=== PATIENT | female | born 1995 | race Caucasian/White ===

== ENCOUNTER 2017-01-15 08:00 | Outpatient (CLI) | payer OTHER ==
[2017-01-15 15:16] LABS: BASOPHILS % (AUTO) 0.6 %; EOSINOPHILS # (AUTO) 0.1 10^3/uL (0.0-0.7); EOSINOPHILS % (AUTO) 1.7 %; HCT - HEMATOCRIT 39.7 % (37.0-47.0); HGB - HEMOGLOBIN 13.3 g/dL (12.0-16.0); LYMPHOCYTES # (AUTO) 2.7 10^3/uL (1.5-3.5); LYMPHOCYTES % (AUTO) 36.8 %; MEAN CORPUSCULAR HEMOGLOBIN 28.8 pg (27.0-31.0); MEAN CORPUSCULAR HGB CONC 33.4 g/dL (32.0-36.0); MEAN CORPUSCULAR VOLUME 86.2 fL (81.0-99.0); MONOCYTES # (AUTO) 0.2 10^3/uL (0.0-1.0); MONOCYTES % (AUTO) 2.6 %; NEUTROPHILS # (AUTO) 4.2 10^3/uL (1.5-6.6); NEUTROPHILS % (AUTO) 58.3 %; NUCLEATED RED BLOOD CELLS AUTO 0.1 /100WBC; RED BLOOD COUNT 4.61 10^6/uL (4.20-5.40); RED CELL DISTRIBUTION WIDTH 13.1 % (12.0-15.0); UNCORRECTED WHITE BLOOD COUNT 7.2 x10^3/uL; WHITE BLOOD COUNT 7.2 x10^3/uL (4.8-10.8)
[2017-01-15 16:08] LABS: BILIRUBIN,TOTAL 0.5 mg/dL (0.2-1.0); BUN - BLOOD UREA NITROGEN 14 mg/dL (6-20); CALCIUM 8.8 mg/dL (8.5-10.3); CARBON DIOXIDE - CO2 25 mmol/L (21-32); CHLORIDE 100 mmol/L (101-111); CHOL/HDL RATIO 2.7 (<4.4); CHOLESTEROL 219 mg/dL; CREATININE 0.5 mg/dL (0.4-1.0); GFR - MDRD 153 (>89); GLUCOSE 358 mg/dL (70-100); HDL CHOLESTEROL 81 mg/dL; LDL/HDL RATIO 1.3 (<4.4); POTASSIUM 4.2 mmol/L (3.5-5.0); SODIUM 135 mmol/L (135-145); TOTAL PROTEIN 7.1 g/dL (6.7-8.2); TRIGLYCERIDES 152 mg/dL; VLDL CHOLESTEROL 30 mg/dL
[2017-01-15 17:01] LABS: HEMOGLOBIN A1C 1.3 g/dL
== END 2017-01-15 23:59 | disposition home or self-care (01) ==
LOC: LAB.R 08:00
PROVIDERS: ATTEND Nurse Practitioner Primary Care
DX: E10.9 Type 1 diabetes mellitus without complications (principal); Z79.899 Other long term (current) drug therapy
CPT/HCPCS: 80053; 80061; 82043; 82570; 83036; 84443; 85025

== ENCOUNTER 2017-03-29 18:26 | Outpatient (CLI) | payer OTHER ==
[2017-03-31 21:12] LABS: TEST RESULT REPORT (())
[2017-04-01 18:41] LABS: GLIADIN (DEAMIDATED) AB IGA 10 U (<20); GLIADIN (DEAMIDATED) AB IGG 18 U (<20); IMMUNOGLOBULIN A 127 mg/dL (81-463); TISSUE TRANSGLUTAMINASE IGA 8 U/mL (()); TISSUE TRANSGLUTAMINASE IGG 3 U/mL (())
== END 2017-03-29 18:27 | disposition home or self-care (01) ==
LOC: LAB 18:26
PROVIDERS: ATTEND Internal Medicine
DX: R19.7 Diarrhea, unspecified (principal); R10.13 Epigastric pain
CPT/HCPCS: 36415; 81599; 82784; 83516; 86256; 87045; 87046; 87329; 87493

== ENCOUNTER 2018-01-08 09:26 | Outpatient (CLI) | payer OTHER ==
[2018-01-08 10:07] LABS: HB2 TOTAL 13.2 g/dL; HEMOGLOBIN A1C % 9.1 % (4.6-6.2)
== END 2018-01-08 09:27 | disposition home or self-care (01) ==
LOC: LAB 09:26
PROVIDERS: ATTEND Nurse Practitioner Primary Care
DX: E10.40 Type 1 diabetes mellitus with diabetic neuropathy, unspecified (principal)
CPT/HCPCS: 36415; 82947; 83036

== ENCOUNTER 2018-06-03 11:32 | Outpatient (CLI) | payer OTHER ==
--- NOTE | 2018-06-03 11:55 | XRAY Report ---
Procedure Date: 06/03/2018 Accession Number: [id number] / [id number] Procedure: XRN - Foot 3 View LT CPT Code: FULL RESULT: EXAM: Foot 3 View LT DATE: 06/03/2018 11:47 AM CLINICAL HISTORY: TYPE 1 DIABETES MELLITUS WITHOUT COMPLICATIONS COMPARISON: None. TECHNIQUE: 3 views. FINDINGS: Bones: Normal. No fractures or bone lesions. Joints: Normal. No subluxations. Soft Tissues: 2 mm calcific density projecting over the superomedial aspect of the soft tissues of the midfoot. IMPRESSION: A well-rounded calcific density projecting over the superior medial aspect of the midfoot should be correlated to prior trauma and/or possible foreign body. RADIA
== END 2018-06-03 11:33 | disposition home or self-care (01) ==
LOC: DI.N 11:32
PROVIDERS: ATTEND Specialist
DX: R22.42 Localized swelling, mass and lump, left lower limb (principal)

== ENCOUNTER 2020-09-13 19:39 | Outpatient (CLI) | payer OTHER ==
[2020-09-13 21:10] LABS: MUDS CUTOFF CONCENTRATIONS CUTOFF CONC BELOW:
--- NOTE | 2020-09-13 21:31 | Ultrasound Report ---
PROCEDURE: OB First Trimester INDICATIONS: HIGH RISK PREG, DIABETES TYPE 1 OUTSIDE/PRIOR DATING DATA: Last menstrual period (LMP): 07.25.20. LMP-based estimated date of delivery (JORGE): 05.01.21. First dating scan (date and location): 09.13.20. Estimated date of delivery (JORGE) from first dating scan: 05.09.21. TECHNIQUE: Real-time scanning was performed of the fetus and maternal pelvic organs, with image documentation. COMPARISON: None FINDINGS: Embryo: An intrauterine anechoic focus measuring 14 mm is present. There is an intrauterine po le measuring 3 mm diameter, corresponding to a 6 week 0 day gestation. No cardiac activity is s een. Measurement variability in dating: +/- 4 weeks by LMP, +/- 7 days by mean sac diameter (use bef ore 6 weeks gestation if crown-rump length not able to be measured), +/- 5 days by crown-rump length (6-12 weeks gestation). A yolk sac is present. Maternal organs: Ovaries demonstrate a corpus luteal cyst within the right ovary. Bilateral ovarian cysts are present. Limited images through the kidneys demonstrate no hydronephrosis. IMPRESSION: 1. Findings consistent with an intrauterine gestation. Routine clinical and sonographic follow-up is recommended to document viability. Reviewed by: Adela Barrett MD on 09/13/2020 9:29 PM PST Approved by: Adela Barrett MD on 09/13/2020 9:29 PM PST Station ID: [id number]
--- NOTE | 2020-09-13 21:41 | Ultrasound Report ---
PROCEDURE: OB Transvaginal INDICATIONS: HIGH RISK , DIABETES TYPE 1 TECHNIQUE: Transvaginal pelvic ultrasound. COMPARISON: None. FINDINGS: See accompanying OB ultrasound for report. IMPRESSION: Transvaginal ultrasound was performed. See accompanying OB ultrasound report. Reviewed by: Adela Barrett MD on 09/13/2020 9:40 PM PST Approved by: Adela Barrett MD on 09/13/2020 9:40 PM PST Station ID: [id number]
[2020-09-13 22:16] LABS: BILIRUBIN,URINE NEGATIVE (NEGATIVE); GLUCOSE, URINE (UA) NEGATIVE (NEGATIVE); KETONES,URINE (UA) NEGATIVE (NEGATIVE); LEUKOCYTE ESTERASE, URINE NEGATIVE (NEGATIVE); NITRITE,URINE NEGATIVE (NEGATIVE); OCCULT BLOOD,URINE NEGATIVE (NEGATIVE); PH,URINE 6.5 PH (5.0-7.5); PROTEIN,URINE NEGATIVE (NEGATIVE); UROBILINOGEN,URINE 0.2 (NORMAL) E.U./dL (NORMAL)
[2020-09-13 22:31] LABS: CLARITY,URINE CLEAR (CLEAR); RBC,URINE None Seen /HPF (0-5); SQUAMOUS EPITHELIAL CELL,UR FEW Squamous (<= Few)
[2020-09-13 22:32] LABS: BACTERIA,URINE Few /HPF (None Seen)
[2020-09-13 22:33] LABS: AMPHETAMINE SCREEN,URINE NEGATIVE (NEGATIVE); BENZODIAZEPINES SCREEN, URINE NEGATIVE (NEGATIVE); COCAINE SCREEN URINE NEGATIVE (NEGATIVE); METHADONE SCREEN, URINE NEGATIVE (NEGATIVE); METHAMPHETAMINES SCREEN, URINE NEGATIVE (NEGATIVE); OPIATE SCREEN, URINE NEGATIVE (NEGATIVE); OXYCODONE SCREEN, URINE NEGATIVE (NEGATIVE); PROPOXYPHENE SCREEN, URINE NEGATIVE (NEGATIVE); TRICYCLIC ANTIDEPRESSANT,URINE NEGATIVE (NEGATIVE)
[2020-09-14 14:14] LABS: HEMOGLOBIN A1c% 8.8 % (4.27-6.07)
== END 2020-09-13 19:40 | disposition home or self-care (01) ==
LOC: DI 19:39
PROVIDERS: ATTEND Obstetrics & Gynecology
DX: O09.90 Supervision of high risk pregnancy, unspecified, unspecified trimester (principal); O24.911 Unspecified diabetes mellitus in pregnancy, first trimester; Z3A.01 Less than 8 weeks gestation of pregnancy
CPT/HCPCS: 76801; 76817; 80306; 81001; 83036; 84702; 87086

== ENCOUNTER 2021-06-29 01:07 | Emergency (ER) | payer OTHER ==
[2021-06-29 01:17] VITALS: BP 148/83
[2021-06-29] MEDS ORDERED: INSULIN ASPART 100 UNIT/1 ML 10 ML MDV SUBQ STA (01:41)
--- NOTE | 2021-06-29 01:47 | ED Physician Documentation ---
History of Present Illness - Stated complaint Stated Complaint: DIABETIC PROBLEMS - Chief complaint Chief Complaint: General - History obtained from History obtained from: Patient, Family (mother) - Additonal information Additional information: 26yF with pmh DM1 p/w pump malfunction tonight. Patient has been using an insulin pump for the past year with continuous basal aspart/novolog at 1.25 U/h, a 1:10 carb ratio, and 1:40 correction. [place] from [place] and her pump came unhooked, noticed around 11:40pm when she went to take a shower. Last meal 9pm. Patient is completely asymptomatic. Review of Systems Ten Systems: 10 systems reviewed and negative Constitutional: denies: Fever, Chills Cardiac: denies: Chest pain / pressure Respiratory: denies: Dyspnea GI: denies: Abdominal Pain, Nausea, Vomiting : denies: Frequency Musculoskeletal: denies: Back pain PD PAST MEDICAL HISTORY - Past Medical History Cardiovascular: None Respiratory: None Endocrine/Autoimmune: Type 1 diabetes GI: Colon polyps, Other : None HEENT: None Psych: None Musculoskeletal: None Derm: None - Past Surgical History Past Surgical History: Yes General: Colonoscopy, EGD HEENT: Tonsil/Adenoidectomy - Present Medications Home Medications: Ambulatory Orders Medication Instructions Recorded Confirmed Insulin Glargine,Hum.rec.anlog 50 units SQ DAILY 07/29/16 08/27/17 [Lantus Solostar] valACYclovir [Valtrex] 500 mg PO DAILY 07/29/16 08/27/17 Biotin 1,000 mcg PO DAILY 05/07/17 08/27/17 Cholecalciferol (Vitamin D3) 1,000 unit PO DAILY 05/07/17 08/27/17 [Vitamin D3] Insulin Lispro [Humalog Kwikpen] 25 - 50 unit SQ QDLUNCH 05/07/17 08/27/17 Norgestimate-Ethinyl Estradiol 1 each PO DAILY 05/07/17 08/27/17 [Mononessa 28 Tablet] Sertraline HCl 100 mg PO DAILY 05/07/17 08/27/17 Trazodone HCl 100 mg PO QPM 05/07/17 08/27/17 - Allergies Allergies/Adverse Reactions: Allergies Allergy/AdvReac Type Severity Reaction Status Date / Time No Known Drug Allergies Allergy Verified 06/29/21 01:14 - Social History Does the pt smoke?: No Smoking Status: Never smoker Does the pt drink ETOH?: Yes Does the pt have substance abuse?: No - Immunizations Immunizations are current?: Yes - POLST Patient has POLST: No PD ED PE NORMAL - Vitals Vital signs reviewed: Yes - General General: Alert and oriented X 3, No acute distress, Well developed/nourished - HEENT HEENT: Atraumatic, PERRL, EOMI, Moist mucous membranes - Neck Neck: Supple, no meningeal sign - Cardiac Cardiac: RRR - Respiratory Respiratory: No respiratory distress, Clear bilaterally - Abdomen Abdomen: Non tender, Non distended - Derm Derm: Normal color - Extremities Extremities: No deformity - Neuro Neuro: Alert and oriented X 3 - Psych Psych: Normal mood, Normal affect Results - Vitals Vitals: Vital Signs - 24 hr 06/29/21 01:14 Temperature 36.5 C Heart Rate 82 Respiratory 16 Rate Blood Pressure 148/83 H O2 Saturation 99 Oxygen O2 Source Room air - Labs Labs: Laboratory Tests 06/29/21 01:17 POC Whole Bld Glucose 531 H* PD MEDICAL DECISION MAKING - ED course ED course: 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 We discussed that she will self administer sliding scale 10-15 units dependent on fingerstick. She and her mother are both extremely health literate and understand they should return to the hospital immediately should she feel symptomatic at all in relation to her sugar. I provided 20 units of novolog to the patient personally and we discussed that she will take a fingerstick then self administer 10-15 units with her morning meal. We discussed that this is a one time exception due to her pump malfunction and she should return to her own home as soon as possible in order to hook her pump back up. strict return precautions discussed. Departure - Departure Disposition: Home, Self Care Clinical Impression: Hyperglycemia due to type 1 diabetes mellitus Condition: Good Instructions: ED Hyperglycemia Diabetic Comments: You were seen in the emergency department for hyperglycemia after your pump was disconnected. We administered 10 units of NovoLog in the emergency department and provided aspart insulin for morningtime administration with meal. Please plan to take 10 units at breakfast and hook your pump back up as soon as you get home. Please follow up with your perforator operator oil well. Return to the emergency department immediately if you experience any symptoms related to your diabetes or if you have any other concerns.
== END 2021-06-29 02:25 | disposition home or self-care (01) ==
LOC: ED 01:07
DX: E10.65 Type 1 diabetes mellitus with hyperglycemia (principal); Z96.41 Presence of insulin pump (external) (internal); Z79.4 Long term (current) use of insulin
CPT/HCPCS: 99283; A9270